=== PATIENT | female | born 1975 | race Two or more races ===

== ENCOUNTER 2017-05-22 00:18 | Emergency (ER) | payer MEDICAID ==
[~2017-05-22] VITALS: Ht 152.4 cm; Wt 78.0 kg
[~2017-05-22 00:18] MED LIST: METO25TA3
[2017-05-22 00:53] LABS: Basophils # (auto) 0 uL; Basophils % (auto) 0.5 % (0.0-2.0); Eosinophils # (auto) 0.1 uL; Eosinophils % (auto) 1.3 % (0.0-7.0); Hematocrit 39.4 % (36.0-46.0); Hemoglobin 13.5 g/dL (12.2-16.2); Lymphocytes # (auto) 3.6 uL; Lymphocytes % (auto) 38.1 % (10.0-50.0); Mean Corpuscular Hemoglobin 30.5 pg (28.0-32.0); Mean Corpuscular Hgb Conc. 34.4 g/dL (32.0-36.0); Mean Corpuscular Volume 88.6 fL (80.0-100.0); Monocytes # (auto) 0.8 uL; Neutrophils # (auto) 4.9 uL; Neutrophils % (auto) 52.1 % (37.0-80.0); Nucleated Red Blood Cells % 0.1 %; Platelet Count (auto) 192 10^3/uL (140-450); Red Blood Cells 4.44 10^6/uL (4.0-5.20); Red Cell Distribution Width 13.2 % (11.8-14.3); White Blood Cell 9.4 10^3/uL (4.4-10.8)
[2017-05-22 01:05] LABS: INR 0.94 (0.9-1.15); Partial Thromboplastin Time 26.7 sec (22.64-33.71); Prothrombin Time 10.2 sec (9.37-12.3)
[2017-05-22 01:14] LABS: Alanine Aminotransferase 39 U/L (13-56); Albumin 3.7 g/dL (3.4-5.0); Anion Gap 6 (5-15); Aspartate Aminotransferase 43 U/L (15-37); Blood Urea Nitrogen 13 mg/dL (7-18); Calcium 9.2 mg/dL (8.5-10.1); Carbon Dioxide 22 mmol/L (21-32); Chloride 107 mmol/L (98-107); GFR African American 144 mL/min; GFR Non-African American 119 mL/min; Glucose 228 mg/dL (74-106); Magnesium 1.9 mg/dL (1.6-2.6); Potassium 3.8 mmol/L (3.5-5.1); Sodium 135 mmol/L (136-145)
[2017-05-22 01:19] LABS: Alkaline Phosphatase 103 U/L (45-117); Bilirubin, Total 0.4 mg/dL (0.2-1.0); Total Protein 7.3 g/dL (6.4-8.2)
[2017-05-22 12:36] LABS: Urine Bacteria FEW /hpf (None Seen); Urine Blood TRACE /uL (Negative); Urine Mucus FEW (None Seen); Urine Specific Gravity 1.023 (1.001-1.035); Urine WBC 2 /hpf (0 - 5)
[2017-05-22] MEDS ORDERED: ACETAMINOPHEN 325 MG TAB PO ONE ×2 (14:55→15:00)
[2017-05-22 15:01] VITALS: BP 98/55
== END 2017-05-22 15:31 | disposition home or self-care (01) ==
LOC: EDBD 00:18 → ER 00:23
DX: K76.0 Fatty (change of) liver, not elsewhere classified (principal); E11.9 Type 2 diabetes mellitus without complications; G93.2 Benign intracranial hypertension; Z98.51 Tubal ligation status
CPT/HCPCS: 36415; 71045; 74176; 80053; 81001; 83036; 83605; 83735; 83880; 84484; 84702; 85025; 85610; 85730; 87040; 93005

== ENCOUNTER 2021-01-18 18:24 | Inpatient (IN) | payer MEDICAID ==
[~2021-01-18] VITALS: Ht 157.5 cm; Wt 72.0 kg
[~2021-01-18 18:24] MED LIST changes: -METO25TA3; +METO25TA36
[2021-01-18] MEDS ORDERED: DexAMETHasone SOD PHOS 10MG/1ML VIAL INJ IV ONE (19:15)
[2021-01-18] MEDS ORDERED: KETOROLAC TROMETH 30 MG/ML 1ML VIAL IV ONE (19:15)
[2021-01-18 21:08] LABS: Basophils # (auto) 0 10 ^3/uL (0-0.2); Basophils % (auto) 0.2 % (0.0-2.0); Eosinophils # (auto) 0 10 ^3/uL (0-0.8); Eosinophils % (auto) 0.1 % (0.0-7.0); Hematocrit 43.8 % (36.0-46.0); Hemoglobin 14.7 g/dL (12.2-16.2); Lymphocytes # (auto) 0.9 10 ^3/uL (0.4-5.4); Lymphocytes % (auto) 16.9 % (10.0-50.0); Mean Corpuscular Hemoglobin 29.8 pg (28.0-32.0); Mean Corpuscular Hgb Conc. 33.6 g/dL (32.0-36.0); Mean Corpuscular Volume 88.6 fL (80.0-100.0); Monocytes # (auto) 0.5 10 ^3/uL (0-1.3); Monocytes % (auto) 9.6 % (0.0-12.0); Neutrophils % (auto) 73.2 % (37.0-80.0); Nucleated Red Blood Cells % 0.3 %; Red Blood Cells 4.94 10^6/uL (4.0-5.20); Red Cell Distribution Width 12.8 % (11.8-14.3); White Blood Cell 5.4 10^3/uL (4.4-10.8)
[2021-01-18 21:13] LABS: INR 1.03 (0.9-1.15); Partial Thromboplastin Time 27.2 sec (23.6-33.0)
[2021-01-18 21:28] LABS: Beta HCG, Quantitative < 1 mlU/mL (1-3); Lactate Dehydrogenase 604 U/L (84-246)
[2021-01-18] MEDS ORDERED: ONDANSETRON HCL 4 MG/2 ML VIAL IV ONE (21:30)
[2021-01-18] MEDS ORDERED: IOHEXOL 350 MG/ML 100ML IJ ONE ×2 (21:46→21:58)
[2021-01-18 22:54] LABS: Albumin 2.6 g/dL (3.4-5.0); Calcium 8.2 mg/dL (8.5-10.1); Potassium 3.7 mmol/L (3.5-5.1)
[2021-01-18] MEDS ORDERED: ACETAMINOPHEN 325 MG TAB PO PRN (23:00)
[2021-01-18] MEDS ORDERED: hydrALAZINE HCL 10 MG TAB PO PRN (23:00)
[2021-01-18 23:08] LABS: BUN/Creatinine Ratio 12.8; Total Protein 7.3 g/dL (6.4-8.2)
[2021-01-19] VITALS (7 sets, daily range): BP systolic 102–122; BP diastolic 47–71
[2021-01-19] MEDS ORDERED: ALBUTEROL SULF 2.5 MG/0.5ML(0.5%) NEB SOLN NEB SCH
[2021-01-19] MEDS ORDERED: METF-370 PO (01:06)
[2021-01-19] MEDS ORDERED: INFLUENZA QUAD 2021-2022 0.5 ML SYRG IM ONE (01:15)
[2021-01-19] MEDS ORDERED: PNEUMOCOCCAL VACC POLYS 25 MCG/0.5 ML VIAL IM ONE (01:15)
[2021-01-19] MEDS ORDERED: DEXTROSE (50%) 50ML SYRG IV PRN (06:45)
[2021-01-19] MEDS: ACCU-CHEK COMFORT CURVE STRIP VI SCH ×4 (07:04→21:34)
[2021-01-19] MEDS: InsuLIN REG 1unit/0.01ml Soln (100units/ml) SC SCH ×4 (07:05→21:51)
[2021-01-19] MEDS: DOXYCYCLINE 100MG/250ML 250 ML IV SCH ×2 (09:50→21:33)
[2021-01-19] MEDS: DexAMETHasone SOD PHOS 10MG/1ML VIAL INJ IV SCH (09:50)
[2021-01-19] MEDS: ASCORBIC ACID 500 MG TAB PO SCH ×2 (09:51→21:33)
[2021-01-19] MEDS: FAMOTIDINE 20 MG TAB PO SCH ×2 (09:51→21:33)
[2021-01-19] MEDS: ZINC SULFATE 220mg CAP or TAB PO SCH (09:51)
[2021-01-19] MEDS: ONDANSETRON HCL 4 MG/2 ML VIAL IV PRN (12:09)
[2021-01-19] MEDS ORDERED: REMDESIVIR PER PHARMACY 0 ML IV SCH (15:00)
[2021-01-19] MEDS ORDERED: REMDESIVIR 200 MG in NS 210ml LOADING DOSE ADULT IV ONE (15:00)
[2021-01-19 20:50] LABS: Urine Bacteria NONE SEEN /hpf (None Seen); Urine Blood Negative /uL (Negative); Urine Specific Gravity 1.045 (1.001-1.035); Urine WBC 1 /hpf (0 - 5)
[2021-01-19] MEDS: ACETAMINOPHEN 325 MG TAB PO PRN (23:18)
[2021-01-20] MEDS: ALBUTEROL SULF HFA 90MCG INH 200DOSE IN PRN ×3 (00:47→20:52)
[2021-01-20 05:00] VITALS: BP 117/76
[2021-01-20] MEDS: ACCU-CHEK COMFORT CURVE STRIP VI SCH ×4 (06:15→21:31)
[2021-01-20] MEDS: InsuLIN REG 1unit/0.01ml Soln (100units/ml) SC SCH ×4 (06:17→21:48)
[2021-01-20] MEDS: ONDANSETRON HCL 4 MG/2 ML VIAL IV PRN (06:22)
[2021-01-20 09:00] VITALS: BP 106/64
[2021-01-20 09:30] LABS: Potassium 3.4 mmol/L (3.5-5.1)
[2021-01-20 09:39] LABS: Albumin 2.5 g/dL (3.4-5.0); BUN/Creatinine Ratio 32.4; Bilirubin, Total 0.6 mg/dL (0.2-1.0); Calcium 8.2 mg/dL (8.5-10.1); Total Protein 6.3 g/dL (6.4-8.2)
[2021-01-20] MEDS: ASCORBIC ACID 500 MG TAB PO SCH ×2 (10:00→21:30)
[2021-01-20] MEDS: DOXYCYCLINE 100MG/250ML 250 ML IV SCH ×2 (10:55→21:30)
[2021-01-20] MEDS: DexAMETHasone SOD PHOS 10MG/1ML VIAL INJ IV SCH (10:55)
[2021-01-20] MEDS: ZINC SULFATE 220mg CAP or TAB PO SCH (10:55)
[2021-01-20] MEDS: FAMOTIDINE 20 MG TAB PO SCH ×2 (10:55→21:30)
[2021-01-20] MEDS: guaiFENesin-DM 100/10mg/5ml SYR PO PRN ×2 (12:08→18:05)
[2021-01-20 13:00] VITALS: BP 107/68
[2021-01-20] MEDS: REMDESIVIR 100mg 100 MG in SODIUM CHL 0.9% 230 ML IV SCH (15:55)
[2021-01-20 17:00] VITALS: BP 108/66
[2021-01-20 22:27] VITALS: BP 120/81
[2021-01-21] MEDS: guaiFENesin-DM 100/10mg/5ml SYR PO PRN ×2 (00:02→08:22)
[2021-01-21] MEDS: ONDANSETRON HCL 4 MG/2 ML VIAL IV PRN ×2 (03:59→11:30)
[2021-01-21 05:59] VITALS: BP 98/56
[2021-01-21] MEDS: InsuLIN REG 1unit/0.01ml Soln (100units/ml) SC SCH ×4 (06:41→21:58)
[2021-01-21] MEDS: ACCU-CHEK COMFORT CURVE STRIP VI SCH ×4 (06:42→21:43)
[2021-01-21 07:20] LABS: Potassium 3.3 mmol/L (3.5-5.1)
[2021-01-21 07:28] LABS: Albumin 2.4 g/dL (3.4-5.0); BUN/Creatinine Ratio 29.3; Bilirubin, Total 0.4 mg/dL (0.2-1.0); Total Protein 5.8 g/dL (6.4-8.2)
[2021-01-21] MEDS: ALBUTEROL SULF HFA 90MCG INH 200DOSE IN PRN ×2 (08:09→19:30)
[2021-01-21 09:00] VITALS: BP 113/76
[2021-01-21] MEDS: DexAMETHasone SOD PHOS 10MG/1ML VIAL INJ IV SCH (11:10)
[2021-01-21] MEDS: DOXYCYCLINE 100MG/250ML 250 ML IV SCH ×2 (11:11→21:42)
[2021-01-21] MEDS: ZINC SULFATE 220mg CAP or TAB PO SCH (11:11)
[2021-01-21] MEDS: FAMOTIDINE 20 MG TAB PO SCH ×2 (11:11→21:42)
[2021-01-21] MEDS: ASCORBIC ACID 500 MG TAB PO SCH ×2 (11:11→21:43)
[2021-01-21 12:50] VITALS: BP 119/72
[2021-01-21] MEDS: REMDESIVIR 100mg 100 MG in SODIUM CHL 0.9% 230 ML IV SCH (15:00)
[2021-01-21 17:00] VITALS: BP 124/78
[2021-01-21 22:00] VITALS: BP 111/78
[2021-01-22] MEDS: guaiFENesin-DM 100/10mg/5ml SYR PO PRN ×2 (01:38→06:17)
[2021-01-22 06:12] VITALS: BP 98/62
[2021-01-22] MEDS: ACCU-CHEK COMFORT CURVE STRIP VI SCH ×4 (06:34→20:40)
[2021-01-22] MEDS: InsuLIN REG 1unit/0.01ml Soln (100units/ml) SC SCH ×4 (06:37→20:38)
[2021-01-22 07:51] LABS: Albumin 2.5 g/dL (3.4-5.0); Calcium 8.2 mg/dL (8.5-10.1); Potassium 3.4 mmol/L (3.5-5.1)
[2021-01-22 07:55] LABS: BUN/Creatinine Ratio 23.3; Bilirubin, Total 0.7 mg/dL (0.2-1.0); Total Protein 6.1 g/dL (6.4-8.2)
[2021-01-22 09:00] VITALS: BP 100/64
[2021-01-22] MEDS: DOXYCYCLINE 100MG/250ML 250 ML IV SCH ×2 (10:43→20:41)
[2021-01-22] MEDS: ZINC SULFATE 220mg CAP or TAB PO SCH (10:43)
[2021-01-22] MEDS: DexAMETHasone SOD PHOS 10MG/1ML VIAL INJ IV SCH (10:43)
[2021-01-22] MEDS: FAMOTIDINE 20 MG TAB PO SCH ×2 (10:44→20:41)
[2021-01-22] MEDS: ASCORBIC ACID 500 MG TAB PO SCH ×2 (10:44→20:41)
[2021-01-22] MEDS: ONDANSETRON HCL 4 MG/2 ML VIAL IV PRN (10:45)
[2021-01-22 12:50] VITALS: BP 101/57
[2021-01-22] MEDS: REMDESIVIR 100mg 100 MG in SODIUM CHL 0.9% 230 ML IV SCH (15:00)
[2021-01-22] MEDS: ALBUTEROL SULF HFA 90MCG INH 200DOSE IN PRN ×2 (16:54→23:46)
[2021-01-22 17:00] VITALS: BP 100/62
[2021-01-22 22:00] VITALS: BP 112/66
[2021-01-23] MEDS: ONDANSETRON HCL 4 MG/2 ML VIAL IV PRN (04:08)
[2021-01-23 05:00] VITALS: BP 114/63
[2021-01-23] MEDS: ACCU-CHEK COMFORT CURVE STRIP VI SCH ×4 (05:10→20:39)
[2021-01-23] MEDS: InsuLIN REG 1unit/0.01ml Soln (100units/ml) SC SCH ×4 (05:13→20:44)
[2021-01-23 09:00] VITALS: BP 111/68
[2021-01-23 09:23] LABS: Albumin 2.5 g/dL (3.4-5.0); BUN/Creatinine Ratio 27.5; Bilirubin, Total 0.7 mg/dL (0.2-1.0); Calcium 8.2 mg/dL (8.5-10.1); Potassium 3.4 mmol/L (3.5-5.1); Total Protein 6.1 g/dL (6.4-8.2)
[2021-01-23] MEDS: ALBUTEROL SULF HFA 90MCG INH 200DOSE IN PRN (09:25)
[2021-01-23] MEDS: FAMOTIDINE 20 MG TAB PO SCH ×2 (10:49→20:44)
[2021-01-23] MEDS: ZINC SULFATE 220mg CAP or TAB PO SCH (10:49)
[2021-01-23] MEDS: DexAMETHasone SOD PHOS 10MG/1ML VIAL INJ IV SCH (10:49)
[2021-01-23] MEDS: DOXYCYCLINE 100MG/250ML 250 ML IV SCH ×2 (10:49→20:44)
[2021-01-23] MEDS: ASCORBIC ACID 500 MG TAB PO SCH ×2 (10:50→20:44)
[2021-01-23 12:30] VITALS: BP 103/66
[2021-01-23] MEDS ORDERED: HYDROCORTISONE 2.5% TOPICAL CREAM 30GM TUBE PR PRN (13:00)
[2021-01-23] MEDS: REMDESIVIR 100mg 100 MG in SODIUM CHL 0.9% 230 ML IV SCH (15:56)
[2021-01-23 16:27] VITALS: BP 103/66
[2021-01-23 17:00] VITALS: BP 100/65
[2021-01-23 22:00] VITALS: BP 108/66
[2021-01-24 05:00] VITALS: BP 97/59
[2021-01-24] MEDS: ACCU-CHEK COMFORT CURVE STRIP VI SCH ×4 (05:52→22:01)
[2021-01-24] MEDS: InsuLIN REG 1unit/0.01ml Soln (100units/ml) SC SCH ×4 (05:54→22:03)
[2021-01-24] MEDS: ALBUTEROL SULF HFA 90MCG INH 200DOSE IN PRN (05:56)
[2021-01-24] MEDS: ONDANSETRON HCL 4 MG/2 ML VIAL IV PRN (05:57)
[2021-01-24 08:00] VITALS: BP 97/58
[2021-01-24] MEDS: ASCORBIC ACID 500 MG TAB PO SCH ×2 (09:24→22:04)
[2021-01-24] MEDS: FAMOTIDINE 20 MG TAB PO SCH ×2 (09:24→22:04)
[2021-01-24] MEDS: DexAMETHasone SOD PHOS 10MG/1ML VIAL INJ IV SCH (09:24)
[2021-01-24] MEDS: DOXYCYCLINE 100MG/250ML 250 ML IV SCH (09:24)
[2021-01-24] MEDS: ZINC SULFATE 220mg CAP or TAB PO SCH (09:25)
[2021-01-24 12:00] VITALS: BP 114/67
[2021-01-24 16:00] VITALS: BP 98/52
[2021-01-24 22:00] VITALS: BP 102/58
[2021-01-24] MEDS: guaiFENesin-DM 100/10mg/5ml SYR PO PRN (23:22)
[2021-01-25] MEDS: ONDANSETRON HCL 4 MG/2 ML VIAL IV PRN (03:29)
[2021-01-25 05:00] VITALS: BP 119/66
[2021-01-25] MEDS: MORPHINE SULFATE INJECTION 2 MG/ML SYRG IV PRN (06:00)
[2021-01-25] MEDS: ACCU-CHEK COMFORT CURVE STRIP VI SCH ×4 (06:11→21:42)
[2021-01-25] MEDS: InsuLIN REG 1unit/0.01ml Soln (100units/ml) SC SCH ×4 (06:19→21:32)
[2021-01-25 08:00] VITALS: BP 108/71
[2021-01-25] MEDS: ALBUTEROL SULF HFA 90MCG INH 200DOSE IN PRN (08:16)
[2021-01-25] MEDS: ZINC SULFATE 220mg CAP or TAB PO SCH (09:39)
[2021-01-25] MEDS: FAMOTIDINE 20 MG TAB PO SCH ×2 (09:39→21:41)
[2021-01-25] MEDS: DexAMETHasone SOD PHOS 10MG/1ML VIAL INJ IV SCH (09:39)
[2021-01-25] MEDS: ASCORBIC ACID 500 MG TAB PO SCH ×2 (09:39→21:42)
[2021-01-25] MEDS: ENOXAPARIN SOD 40 MG/0.4 ML SYRINGE SC SCH (11:46)
[2021-01-25 12:00] VITALS: BP 110/65
[2021-01-25] MEDS: INSULIN LANTUS (GLARGINE) 1 /0.01ml (100units/ml) SC SCH (21:33)
[2021-01-26] MEDS: ALBUTEROL SULF HFA 90MCG INH 200DOSE IN PRN (01:34)
[2021-01-26] MEDS: ACETAMINOPHEN 325 MG TAB PO PRN (02:26)
[2021-01-26] MEDS: MORPHINE SULFATE INJECTION 2 MG/ML SYRG IV PRN (04:13)
[2021-01-26 05:00] VITALS: BP 100/73
[2021-01-26] MEDS: InsuLIN REG 1unit/0.01ml Soln (100units/ml) SC SCH ×3 (06:15→22:19)
[2021-01-26] MEDS: ACCU-CHEK COMFORT CURVE STRIP VI SCH ×4 (06:27→22:05)
[2021-01-26 07:37] LABS: Basophils # (auto) 0.1 10 ^3/uL (0-0.2); Eosinophils # (auto) 0 10 ^3/uL (0-0.8); Hematocrit 41.1 % (36.0-46.0); Hemoglobin 14.3 g/dL (12.2-16.2); Lymphocytes # (auto) 1.5 10 ^3/uL (0.4-5.4); Lymphocytes % (auto) 13.3 % (10.0-50.0); Mean Corpuscular Hemoglobin 30.5 pg (28.0-32.0); Mean Corpuscular Hgb Conc. 34.8 g/dL (32.0-36.0); Mean Corpuscular Volume 87.4 fL (80.0-100.0); Monocytes # (auto) 0.9 10 ^3/uL (0-1.3); Monocytes % (auto) 7.5 % (0.0-12.0); Neutrophils % (auto) 78.2 % (37.0-80.0); Red Cell Distribution Width 12.6 % (11.8-14.3); White Blood Cell 11.5 10^3/uL (4.4-10.8)
[2021-01-26 07:54] LABS: Potassium 4.5 mmol/L (3.5-5.1)
[2021-01-26 08:04] LABS: Albumin 3.1 g/dL (3.4-5.0); BUN/Creatinine Ratio 33.3; Bilirubin, Total 0.9 mg/dL (0.2-1.0); Calcium 9.2 mg/dL (8.5-10.1)
[2021-01-26 09:00] VITALS: BP 95/62
[2021-01-26] MEDS: ASCORBIC ACID 500 MG TAB PO SCH ×2 (10:03→22:04)
[2021-01-26] MEDS: DexAMETHasone SOD PHOS 10MG/1ML VIAL INJ IV SCH (10:03)
[2021-01-26] MEDS: FAMOTIDINE 20 MG TAB PO SCH ×2 (10:03→22:04)
[2021-01-26] MEDS: ENOXAPARIN SOD 40 MG/0.4 ML SYRINGE SC SCH (10:03)
[2021-01-26] MEDS: ZINC SULFATE 220mg CAP or TAB PO SCH (10:03)
[2021-01-26] MEDS: HYDROcodone-ACET 5/325MG TAB PO PRN (10:04)
[2021-01-26 13:00] VITALS: BP 94/62
[2021-01-26 13:20] VITALS: BP 95/62
[2021-01-26] MEDS ORDERED: DOCUSATE SOD 100 MG CAP PO ONE (15:30)
[2021-01-26 17:00] VITALS: BP 109/68
[2021-01-26] MEDS ORDERED: InsuLIN REG 1unit/0.01ml Soln (100units/ml) SC SCH (18:00)
[2021-01-26] MEDS: DOCUSATE SOD 100 MG CAP PO SCH (22:03)
[2021-01-26] MEDS: SENNA 8.6 MG TAB PO SCH (22:04)
[2021-01-26] MEDS: INSULIN LANTUS (GLARGINE) 1 /0.01ml (100units/ml) SC SCH (22:15)
[2021-01-26 22:25] VITALS: BP 107/73
[2021-01-27] MEDS: ALBUTEROL SULF HFA 90MCG INH 200DOSE IN PRN ×2 (00:50→06:07)
[2021-01-27] MEDS: MORPHINE SULFATE INJECTION 2 MG/ML SYRG IV PRN (02:40)
[2021-01-27] MEDS: ONDANSETRON HCL 4 MG/2 ML VIAL IV PRN (02:41)
[2021-01-27 05:00] VITALS: BP 104/67
[2021-01-27] MEDS: InsuLIN REG 1unit/0.01ml Soln (100units/ml) SC SCH ×4 (06:33→21:17)
[2021-01-27] MEDS: ACCU-CHEK COMFORT CURVE STRIP VI SCH ×4 (06:34→21:18)
[2021-01-27 07:59] LABS: Basophils # (auto) 0 10 ^3/uL (0-0.2); Basophils % (auto) 0.2 % (0.0-2.0); Eosinophils # (auto) 0 10 ^3/uL (0-0.8); Hematocrit 40.6 % (36.0-46.0); Hemoglobin 14.1 g/dL (12.2-16.2); Lymphocytes # (auto) 1.7 10 ^3/uL (0.4-5.4); Lymphocytes % (auto) 14.5 % (10.0-50.0); Mean Corpuscular Hemoglobin 30.2 pg (28.0-32.0); Mean Corpuscular Hgb Conc. 34.6 g/dL (32.0-36.0); Mean Corpuscular Volume 87.4 fL (80.0-100.0); Monocytes % (auto) 8.4 % (0.0-12.0); Neutrophils # (auto) 8.8 10 ^3/uL (1.6-8.6); Neutrophils % (auto) 76.9 % (37.0-80.0); Nucleated Red Blood Cells % 0.1 %; Red Blood Cells 4.65 10^6/uL (4.0-5.20); Red Cell Distribution Width 12.8 % (11.8-14.3); White Blood Cell 11.4 10^3/uL (4.4-10.8)
[2021-01-27 08:11] LABS: Potassium 4.5 mmol/L (3.5-5.1)
[2021-01-27 08:24] LABS: Bilirubin, Total 0.9 mg/dL (0.2-1.0); Calcium 8.9 mg/dL (8.5-10.1); Total Protein 6.8 g/dL (6.4-8.2)
[2021-01-27 09:00] VITALS: BP 103/66
[2021-01-27] MEDS: DexAMETHasone SOD PHOS 10MG/1ML VIAL INJ IV SCH (10:06)
[2021-01-27] MEDS: FAMOTIDINE 20 MG TAB PO SCH ×2 (10:07→21:19)
[2021-01-27] MEDS: DOCUSATE SOD 100 MG CAP PO SCH ×2 (10:07→21:16)
[2021-01-27] MEDS: ZINC SULFATE 220mg CAP or TAB PO SCH (10:07)
[2021-01-27] MEDS: ASCORBIC ACID 500 MG TAB PO SCH ×2 (10:07→21:18)
[2021-01-27] MEDS: ENOXAPARIN SOD 40 MG/0.4 ML SYRINGE SC SCH (10:07)
[2021-01-27] MEDS: POLYETHYLENE GLYCOL 17 GM PWDR PO SCH (10:08)
[2021-01-27] MEDS ORDERED: MECLIZINE HCL 25 MG TAB PO PRN (11:15)
[2021-01-27 13:00] VITALS: BP 97/50
[2021-01-27 16:58] VITALS: BP 106/66
[2021-01-27] MEDS: INSULIN LANTUS (GLARGINE) 1 /0.01ml (100units/ml) SC SCH (21:18)
[2021-01-27] MEDS: SENNA 8.6 MG TAB PO SCH (21:19)
[2021-01-27 22:00] VITALS: BP 97/58
[2021-01-28 05:00] VITALS: BP 108/79
[2021-01-28] MEDS: MORPHINE SULFATE INJECTION 2 MG/ML SYRG IV PRN (05:25)
[2021-01-28] MEDS: glipiZIDE 5 MG TAB PO SCH (06:15)
[2021-01-28] MEDS: ACCU-CHEK COMFORT CURVE STRIP VI SCH ×4 (06:15→21:30)
[2021-01-28] MEDS: InsuLIN REG 1unit/0.01ml Soln (100units/ml) SC SCH ×4 (06:16→21:29)
[2021-01-28] MEDS: ALBUTEROL SULF HFA 90MCG INH 200DOSE IN PRN ×2 (06:23→21:30)
[2021-01-28 09:00] VITALS: BP 108/58
[2021-01-28] MEDS: DOCUSATE SOD 100 MG CAP PO SCH ×2 (10:18→21:29)
[2021-01-28] MEDS: DexAMETHasone SOD PHOS 10MG/1ML VIAL INJ IV SCH (10:18)
[2021-01-28] MEDS: FAMOTIDINE 20 MG TAB PO SCH ×2 (10:18→21:29)
[2021-01-28] MEDS: POLYETHYLENE GLYCOL 17 GM PWDR PO SCH (10:18)
[2021-01-28] MEDS: ASCORBIC ACID 500 MG TAB PO SCH ×2 (10:18→21:29)
[2021-01-28] MEDS: ZINC SULFATE 220mg CAP or TAB PO SCH (10:18)
[2021-01-28] MEDS: ENOXAPARIN SOD 40 MG/0.4 ML SYRINGE SC SCH (10:19)
[2021-01-28 12:38] VITALS: BP 118/71
[2021-01-28 16:39] VITALS: BP 115/76
[2021-01-28] MEDS: SENNA 8.6 MG TAB PO SCH (21:29)
[2021-01-28] MEDS: INSULIN LANTUS (GLARGINE) 1 /0.01ml (100units/ml) SC SCH (21:30)
[2021-01-28 22:00] VITALS: BP 102/60
[2021-01-29 05:00] VITALS: BP 108/69
[2021-01-29] MEDS: HYDROcodone-ACET 5/325MG TAB PO PRN (05:51)
[2021-01-29] MEDS: ALBUTEROL SULF HFA 90MCG INH 200DOSE IN PRN (06:12)
[2021-01-29] MEDS: glipiZIDE 5 MG TAB PO SCH (06:13)
[2021-01-29] MEDS: ACCU-CHEK COMFORT CURVE STRIP VI SCH ×4 (06:13→21:14)
[2021-01-29] MEDS: InsuLIN REG 1unit/0.01ml Soln (100units/ml) SC SCH ×4 (06:13→21:07)
[2021-01-29 09:00] VITALS: BP 99/61
[2021-01-29] MEDS: ZINC SULFATE 220mg CAP or TAB PO SCH (09:50)
[2021-01-29] MEDS: DexAMETHasone SOD PHOS 10MG/1ML VIAL INJ IV SCH (09:50)
[2021-01-29] MEDS: FAMOTIDINE 20 MG TAB PO SCH ×2 (09:58→21:14)
[2021-01-29] MEDS: ENOXAPARIN SOD 40 MG/0.4 ML SYRINGE SC SCH (09:58)
[2021-01-29] MEDS: DOCUSATE SOD 100 MG CAP PO SCH ×2 (09:58→21:14)
[2021-01-29] MEDS: POLYETHYLENE GLYCOL 17 GM PWDR PO SCH (09:58)
[2021-01-29] MEDS: ASCORBIC ACID 500 MG TAB PO SCH ×2 (09:58→21:14)
[2021-01-29] MEDS: ONDANSETRON HCL 4 MG/2 ML VIAL IV PRN (10:13)
[2021-01-29 11:30] VITALS: BP 99/61
[2021-01-29 13:00] VITALS: BP 104/72
[2021-01-29 17:00] VITALS: BP 111/61
[2021-01-29] MEDS: INSULIN LANTUS (GLARGINE) 1 /0.01ml (100units/ml) SC SCH (21:13)
[2021-01-29] MEDS: SENNA 8.6 MG TAB PO SCH (21:14)
[2021-01-29 22:00] VITALS: BP 100/67
[2021-01-30] MEDS: guaiFENesin-DM 100/10mg/5ml SYR PO PRN ×2 (03:17→08:35)
[2021-01-30 05:00] VITALS: BP 102/64
[2021-01-30] MEDS: ALBUTEROL SULF HFA 90MCG INH 200DOSE IN PRN (05:53)
[2021-01-30] MEDS: InsuLIN REG 1unit/0.01ml Soln (100units/ml) SC SCH ×4 (06:27→22:00)
[2021-01-30] MEDS: ACCU-CHEK COMFORT CURVE STRIP VI SCH ×4 (06:30→22:56)
[2021-01-30] MEDS: glipiZIDE 5 MG TAB PO SCH (06:30)
[2021-01-30] MEDS: ONDANSETRON HCL 4 MG/2 ML VIAL IV PRN ×3 (06:34→20:07)
[2021-01-30 07:25] LABS: Basophils # (auto) 0 10 ^3/uL (0-0.2); Basophils % (auto) 0.6 % (0.0-2.0); Eosinophils # (auto) 0.1 10 ^3/uL (0-0.8); Eosinophils % (auto) 0.8 % (0.0-7.0); Hematocrit 37.5 % (36.0-46.0); Hemoglobin 13.2 g/dL (12.2-16.2); Lymphocytes # (auto) 2.5 10 ^3/uL (0.4-5.4); Lymphocytes % (auto) 29.6 % (10.0-50.0); Mean Corpuscular Hemoglobin 31.1 pg (28.0-32.0); Mean Corpuscular Hgb Conc. 35.2 g/dL (32.0-36.0); Mean Corpuscular Volume 88.2 fL (80.0-100.0); Monocytes # (auto) 0.6 10 ^3/uL (0-1.3); Monocytes % (auto) 7.2 % (0.0-12.0); Neutrophils # (auto) 5.3 10 ^3/uL (1.6-8.6); Neutrophils % (auto) 61.8 % (37.0-80.0); Nucleated Red Blood Cells % 0.9 %; Red Blood Cells 4.24 10^6/uL (4.0-5.20); Red Cell Distribution Width 12.7 % (11.8-14.3); White Blood Cell 8.6 10^3/uL (4.4-10.8)
[2021-01-30 07:36] LABS: BUN/Creatinine Ratio 26.5; Calcium 8.4 mg/dL (8.5-10.1); Potassium 4.2 mmol/L (3.5-5.1)
[2021-01-30 09:00] VITALS: BP 102/58
[2021-01-30] MEDS: DexAMETHasone SOD PHOS 10MG/1ML VIAL INJ IV SCH (10:13)
[2021-01-30] MEDS: ZINC SULFATE 220mg CAP or TAB PO SCH (10:14)
[2021-01-30] MEDS: FAMOTIDINE 20 MG TAB PO SCH ×2 (10:14→22:56)
[2021-01-30] MEDS: DOCUSATE SOD 100 MG CAP PO SCH ×2 (10:14→22:55)
[2021-01-30] MEDS: POLYETHYLENE GLYCOL 17 GM PWDR PO SCH (10:14)
[2021-01-30] MEDS: ASCORBIC ACID 500 MG TAB PO SCH ×2 (10:15→22:56)
[2021-01-30] MEDS: ENOXAPARIN SOD 40 MG/0.4 ML SYRINGE SC SCH (10:15)
[2021-01-30 12:39] VITALS: BP 113/69
[2021-01-30 16:36] VITALS: BP 108/63
[2021-01-30] MEDS: ACETAMINOPHEN 325 MG TAB PO PRN (20:07)
[2021-01-30 22:00] VITALS: BP 115/56
[2021-01-30] MEDS: INSULIN LANTUS (GLARGINE) 1 /0.01ml (100units/ml) SC SCH (22:00)
[2021-01-30] MEDS: SENNA 8.6 MG TAB PO SCH (22:56)
[2021-01-31] MEDS: ACETAMINOPHEN 325 MG TAB PO PRN (00:54)
[2021-01-31 05:00] VITALS: BP 99/61
[2021-01-31] MEDS: guaiFENesin-DM 100/10mg/5ml SYR PO PRN ×2 (05:50→10:55)
[2021-01-31] MEDS: ACCU-CHEK COMFORT CURVE STRIP VI SCH ×2 (06:10→13:25)
[2021-01-31] MEDS: InsuLIN REG 1unit/0.01ml Soln (100units/ml) SC SCH ×2 (06:10→11:30)
[2021-01-31] MEDS ORDERED: glipiZIDE 5 MG TAB PO SCH (07:00)
[2021-01-31 08:51] VITALS: BP 104/65
[2021-01-31] MEDS: ALBUTEROL SULF HFA 90MCG INH 200DOSE IN PRN (09:01)
[2021-01-31] MEDS: POLYETHYLENE GLYCOL 17 GM PWDR PO SCH (09:17)
[2021-01-31] MEDS: ZINC SULFATE 220mg CAP or TAB PO SCH (09:17)
[2021-01-31] MEDS: DOCUSATE SOD 100 MG CAP PO SCH (09:17)
[2021-01-31] MEDS: ENOXAPARIN SOD 40 MG/0.4 ML SYRINGE SC SCH (09:18)
[2021-01-31] MEDS: ASCORBIC ACID 500 MG TAB PO SCH (09:18)
[2021-01-31] MEDS: ONDANSETRON HCL 4 MG/2 ML VIAL IV PRN (09:18)
[2021-01-31] MEDS: FAMOTIDINE 20 MG TAB PO SCH (09:18)
[2021-01-31 12:43] VITALS: BP 117/76
[2021-01-31 17:06] VITALS: BP 103/65
== END 2021-01-31 18:00 | disposition home or self-care (01) | DRG 137 ==
LOC: EDBD 18:24 → ER 18:25 → TELE 22:48 → TELE-EAST 23:28
PROVIDERS: ADMIT Nurse Practitioner Family; ATTEND Nurse Practitioner Family
PROC: XW033E5 Introduction of Remdesivir Anti-infective into Peripheral Vein, Percutaneous Approach, New Technology Group 5 (ICD-10-PCS; principal; 2021-01-19)
PROC: 05HC33Z Insertion of Infusion Device into Left Basilic Vein, Percutaneous Approach (ICD-10-PCS; 2021-01-25)
PROC: B54NZZA Ultrasonography of Left Upper Extremity Veins, Guidance (ICD-10-PCS; 2021-01-25)
DX: U07.1 COVID-19 (principal); J96.01 Acute respiratory failure with hypoxia; J12.82 Pneumonia due to coronavirus disease 2019; E66.9 Obesity, unspecified; Z68.30 Body mass index [BMI] 30.0-30.9, adult; E88.09 Other disorders of plasma-protein metabolism, not elsewhere classified; H81.10 Benign paroxysmal vertigo, unspecified ear; K59.00 Constipation, unspecified; E11.65 Type 2 diabetes mellitus with hyperglycemia; Z78.9 Other specified health status; Z79.899 Other long term (current) drug therapy; Z83.3 Family history of diabetes mellitus; R00.1 Bradycardia, unspecified; R74.01 Elevation of levels of liver transaminase levels
CPT/HCPCS: 36415; 36600; 70450; 71045; 71275; 80048; 80053; 81001; 82728; 82805; 82962; 83036; 83605; 83615; 83735; 84484; 84702; 85025; 85379; 85610; 85730; 87426; 93970; 94640; 96374; 96375; G0378; J1100; J1815; J1885; J2405; J3490

== ENCOUNTER 2022-01-07 12:06 | Inpatient (IN) | payer MEDICAID ==
[~2022-01-07] VITALS: Ht 157.5 cm; Wt 73.7 kg
[2022-01-07] VITALS (22 sets, daily range): BP systolic 83–141; BP diastolic 43–64
[~2022-01-07 12:06] MED LIST changes: +METF-370 PO; -METO25TA36
[2022-01-07] MEDS ORDERED: DexAMETHasone SOD PHOS 10MG/1ML VIAL INJ IV ONE (14:00)
[2022-01-07] MEDS ORDERED: diphenhdrAMINE HCL 50 MG/1 ML VL IV ONE (14:00)
[2022-01-07 14:27] LABS: Basophils # (auto) 0 10 ^3/uL (0-0.2); Basophils % (auto) 0.5 % (0.0-2.0); Eosinophils # (auto) 0 10 ^3/uL (0-0.8); Eosinophils % (auto) 0.1 % (0.0-7.0); Hematocrit 39.9 % (36.0-46.0); Hemoglobin 13.5 g/dL (12.2-16.2); Lymphocytes % (auto) 13.9 % (10.0-50.0); Mean Corpuscular Hemoglobin 29.5 pg (28.0-32.0); Mean Corpuscular Hgb Conc. 33.7 g/dL (32.0-36.0); Mean Corpuscular Volume 87.5 fL (80.0-100.0); Monocytes # (auto) 0.8 10 ^3/uL (0-1.3); Monocytes % (auto) 10.6 % (0.0-12.0); Neutrophils # (auto) 5.5 10 ^3/uL (1.6-8.6); Neutrophils % (auto) 74.9 % (37.0-80.0); Nucleated Red Blood Cells % 0.1 %; Red Blood Cells 4.56 10^6/uL (4.0-5.20); Red Cell Distribution Width 13.4 % (11.8-14.3); White Blood Cell 7.3 10^3/uL (4.4-10.8)
[2022-01-07 15:00] LABS: Albumin 4.3 g/dL (3.4-5.0); Calcium 9.1 mg/dL (8.5-10.1); Potassium 3.8 mmol/L (3.5-5.1)
[2022-01-07 15:03] LABS: BUN/Creatinine Ratio 11.8; Bilirubin, Total 0.6 mg/dL (0.2-1.0); Total Protein 7.9 g/dL (6.4-8.2)
[2022-01-07] MEDS ORDERED: cefTRIAXone 1GM/50ML D5W 50 ML IV ONE (15:15)
[2022-01-07] MEDS ORDERED: AZITHROMYCIN 500MG/ 250ML 250 ML IV ONE (15:15)
[2022-01-07] MEDS ORDERED: EPINEPHrine HCL 0.5 ML NEB NEB ONE ×2 (16:00→22:45)
[2022-01-07] MEDS ORDERED: VANCOMYCIN 1GM/250ML 250 ML IV ONE (16:00)
[2022-01-07] MEDS ORDERED: fentaNYL CITRATE 100 MCG/2 ML VL ONE ×2 (17:08→17:34)
[2022-01-07] MEDS ORDERED: MIDAZOLAM HCL 2MG/2ML 2ml VIAL (1mg/ml) ONE ×2 (17:09→17:29)
[2022-01-07] MEDS ORDERED: DexAMETHasone SOD PHOS 10MG/1ML VIAL INJ ONE (17:28)
[2022-01-07] MEDS ORDERED: PROPOFOL 10 MG/ML 20 ML IV ONE (17:29)
[2022-01-07] MEDS ORDERED: HYDROmorphone HCL 2 MG/ML VL/or syr ONE (17:29)
[2022-01-07] MEDS: DexAMETHasone SOD PHOS 4 MG/1ML SDV INJ IV SCH (18:00)
[2022-01-07] MEDS ORDERED: MORPHINE SULFATE INJ 2 MG/ml SYRG IV PRN (18:15)
[2022-01-07] MEDS ORDERED: NITROGLYCERIN 0.4 MG SL TAB SL PRN (18:15)
[2022-01-07] MEDS ORDERED: ALBUTEROL SULF HFA 90MCG INH 200DOSE IN PRN (18:30)
[2022-01-07] MEDS ORDERED: LABETALOL HCL 5 MG/ML 4ML SYRINGE IV PRN (18:30)
[2022-01-07] MEDS ORDERED: ePHEDrine SULFATE 50 MG/ML AMP IV PRN (18:30)
[2022-01-07] MEDS ORDERED: MIDAZOLAM HCL 2MG/2ML 2ml VIAL (1mg/ml) IV PRN (18:30)
[2022-01-07] MEDS ORDERED: ONDANSETRON HCL 4 MG/2 ML VIAL IV PRN (18:30)
[2022-01-07] MEDS ORDERED: MORPHINE SULFATE 4 MG/ML SYR/VIAL IV PRN (18:30)
[2022-01-07] MEDS ORDERED: HYDROmorphone HCL 2 MG/ML VL/or syr IV PRN (18:30)
[2022-01-07] MEDS ORDERED: NOREPINEPHRINE 8 MG/250ML KIT 250 ML IV PRN (18:45)
[2022-01-07] MEDS ORDERED: DEXTROSE (50%) 50ML SYRG IV PRN (18:45)
[2022-01-07] MEDS: PROPOFOL 100 ML IV SCH (19:00)
[2022-01-07] MEDS: fentaNYL Drip 2500mCg/250mlNS 250 ML IV SCH ×2 (19:00→21:30)
[2022-01-07] MEDS: MIDAZOLAM DRIP 50 mg/50mL 50 ML IV SCH ×3 (19:00→21:00)
[2022-01-07] MEDS ORDERED: hydrALAZINE HCL 20 MG/ML VL IV PRN (19:15)
[2022-01-07] MEDS ORDERED: SODIUM CHLORIDE 0.9% 1,000 ML IV ONE (19:15)
[2022-01-07] MEDS: DexAMETHasone SOD PHOS 10MG/1ML VIAL INJ IV SCH (22:00)
[2022-01-07] MEDS: ENOXAPARIN SOD 40 MG/0.4 ML SYRINGE SC SCH (22:00)
[2022-01-07] MEDS: BUDESONIDE (INHALATION) 180 MCG IH IN SCH (22:00)
[2022-01-07] MEDS ORDERED: ENOXAPARIN SOD 60 MG/0.6 ML SYRINGE SC SCH (22:00)
[2022-01-07] MEDS ORDERED: ceFAZolin 2GM/100ML 100 ML IV SCH (22:00)
[2022-01-07 22:32] LABS: Cholesterol 188 mg/dL (< 200)
[2022-01-07 22:34] LABS: HDL Cholesterol 40 mg/dL (40-59); LDL Cholesterol 137 mg/dL (< 100); Magnesium 1.8 mg/dL (1.6-2.6); Triglycerides 165 mg/dL (< 150)
[2022-01-07 22:39] LABS: INR 1.03 (0.9-1.15)
[2022-01-07 22:43] LABS: CRP High Sensitivity 3.95 mg/dL (< 0.3)
[2022-01-07 22:52] LABS: Thyroid Stimulating Hormone 0.42 uIU/mL (0.358-3.74)
[2022-01-08] VITALS (104 sets, daily range): BP systolic 80–136; BP diastolic 37–64
[2022-01-08] MEDS: MIDAZOLAM DRIP 50 mg/50mL 50 ML IV SCH ×3 (02:00→17:19)
[2022-01-08] MEDS: IPRATROPIUM BROM 0.5 MG/2.5ML INH SOL NEB PRN (04:12)
[2022-01-08] MEDS: ALBUTEROL SULF 2.5 MG/0.5ML(0.5%) NEB SOLN NEB PRN (04:12)
[2022-01-08 04:44] LABS: Basophils # (auto) 0 10 ^3/uL (0-0.2); Basophils % (auto) 0.2 % (0.0-2.0); Eosinophils # (auto) 0 10 ^3/uL (0-0.8); Hematocrit 35.7 % (36.0-46.0); Hemoglobin 12.1 g/dL (12.2-16.2); Lymphocytes # (auto) 0.6 10 ^3/uL (0.4-5.4); Lymphocytes % (auto) 6.7 % (10.0-50.0); Mean Corpuscular Hemoglobin 29.9 pg (28.0-32.0); Mean Corpuscular Hgb Conc. 33.8 g/dL (32.0-36.0); Mean Corpuscular Volume 88.5 fL (80.0-100.0); Monocytes # (auto) 0.3 10 ^3/uL (0-1.3); Monocytes % (auto) 2.9 % (0.0-12.0); Neutrophils # (auto) 7.7 10 ^3/uL (1.6-8.6); Neutrophils % (auto) 90.2 % (37.0-80.0); Red Blood Cells 4.04 10^6/uL (4.0-5.20); Red Cell Distribution Width 13.5 % (11.8-14.3); White Blood Cell 8.6 10^3/uL (4.4-10.8)
[2022-01-08 05:01] LABS: Albumin 3.7 g/dL (3.4-5.0); Calcium 8.6 mg/dL (8.5-10.1); Potassium 4.2 mmol/L (3.5-5.1)
[2022-01-08 05:04] LABS: BUN/Creatinine Ratio 12.5
[2022-01-08 05:06] LABS: Bilirubin, Total 0.6 mg/dL (0.2-1.0)
[2022-01-08] MEDS: DexAMETHasone SOD PHOS 10MG/1ML VIAL INJ IV SCH ×3 (06:00→21:56)
[2022-01-08] MEDS: InsuLIN REG 1unit/0.01ml Soln (100units/ml) SC SCH ×4 (06:00→18:09)
[2022-01-08] MEDS: ACCU-CHEK COMFORT CURVE STRIP VI SCH ×4 (06:00→18:07)
[2022-01-08] MEDS: PIPERACILLIN-TAZO 4.5GM 100 ML IV SCH ×2 (06:00)
[2022-01-08] MEDS: DexAMETHasone SOD PHOS 4 MG/1ML SDV INJ IV SCH ×2 (06:00)
[2022-01-08] MEDS ORDERED: PIPERACILLIN-TAZO 4.5GM 100 ML IV ONE (06:57)
[2022-01-08] MEDS: ENOXAPARIN SOD 40 MG/0.4 ML SYRINGE SC SCH ×2 (08:56→21:56)
[2022-01-08] MEDS: BUDESONIDE (INHALATION) 180 MCG IH IN SCH (10:00)
[2022-01-08] MEDS: AZITHROMYCIN 500MG/ 250ML 250 ML IV SCH (10:34)
[2022-01-08] MEDS ORDERED: AMOXICILLIN TRIHYDRATE 250 MG CAP PO ONE (11:45)
[2022-01-08] MEDS: fentaNYL Drip 2500mCg/250mlNS 250 ML IV SCH (12:19)
[2022-01-08] MEDS ORDERED: AMOXICILLIN TRIHYDRATE 250 MG CAP PO SCH (14:00)
[2022-01-08] MEDS: PENICILLIN G POTASSIUM 2,500,000 UNITS in D5W 5% 50 ML IV SCH ×5 (14:25→23:45)
[2022-01-08] MEDS: DOPamine 1600MCG/ML D5W 250 ML IV SCH (17:30)
[2022-01-08] MEDS: PROPOFOL 100 ML IV SCH (19:00)
[2022-01-09] VITALS (65 sets, daily range): BP systolic 98–172; BP diastolic 46–89
[2022-01-09] MEDS: PENICILLIN G POTASSIUM 2,500,000 UNITS in D5W 5% 50 ML IV SCH ×5 (03:45→19:45)
[2022-01-09 04:47] LABS: BUN/Creatinine Ratio 23.1; Calcium 8.4 mg/dL (8.5-10.1); Potassium 4.5 mmol/L (3.5-5.1)
[2022-01-09] MEDS: InsuLIN REG 1unit/0.01ml Soln (100units/ml) SC SCH ×4 (06:00→18:00)
[2022-01-09] MEDS: ACCU-CHEK COMFORT CURVE STRIP VI SCH ×4 (06:00→18:04)
[2022-01-09] MEDS: DexAMETHasone SOD PHOS 10MG/1ML VIAL INJ IV SCH ×2 (06:00→15:31)
[2022-01-09 07:32] LABS: Basophils # (auto) 0 10 ^3/uL (0-0.2); Basophils % (auto) 0.1 % (0.0-2.0); Eosinophils # (auto) 0 10 ^3/uL (0-0.8); Hematocrit 34.7 % (36.0-46.0); Hemoglobin 11.4 g/dL (12.2-16.2); Lymphocytes # (auto) 0.8 10 ^3/uL (0.4-5.4); Lymphocytes % (auto) 6.7 % (10.0-50.0); Mean Corpuscular Hemoglobin 29.4 pg (28.0-32.0); Mean Corpuscular Hgb Conc. 32.9 g/dL (32.0-36.0); Mean Corpuscular Volume 89.4 fL (80.0-100.0); Monocytes # (auto) 0.5 10 ^3/uL (0-1.3); Monocytes % (auto) 3.8 % (0.0-12.0); Neutrophils # (auto) 10.6 10 ^3/uL (1.6-8.6); Neutrophils % (auto) 89.4 % (37.0-80.0); Red Blood Cells 3.88 10^6/uL (4.0-5.20); Red Cell Distribution Width 13.3 % (11.8-14.3); White Blood Cell 11.9 10^3/uL (4.4-10.8)
[2022-01-09] MEDS: AZITHROMYCIN 500MG/ 250ML 250 ML IV SCH (09:50)
[2022-01-09] MEDS: ENOXAPARIN SOD 40 MG/0.4 ML SYRINGE SC SCH (09:50)
[2022-01-09] MEDS: DOPamine 1600MCG/ML D5W 250 ML IV SCH (11:36)
[2022-01-09] MEDS: MIDAZOLAM DRIP 50 mg/50mL 50 ML IV SCH (12:11)
[2022-01-09] MEDS: ALBUTEROL SULF 2.5 MG/0.5ML(0.5%) NEB SOLN NEB PRN (18:38)
[2022-01-09] MEDS: IPRATROPIUM BROM 0.5 MG/2.5ML INH SOL NEB PRN (18:38)
[2022-01-09] MEDS: PROPOFOL 100 ML IV SCH (19:00)
[2022-01-09] MEDS: fentaNYL Drip 2500mCg/250mlNS 250 ML IV SCH (19:00)
== END 2022-01-09 20:50 | DRG 113 ==
LOC: ER 12:09 → TELE 18:11 → ICU WEST 19:28
PROVIDERS: ADMIT Registered Nurse; ATTEND Internal Medicine Pulmonary Disease
PROC: 0BH17EZ Insertion of Endotracheal Airway into Trachea, Via Natural or Artificial Opening (ICD-10-PCS; 2022-01-07)
PROC: 5A1945Z Respiratory Ventilation, 24-96 Consecutive Hours (ICD-10-PCS; principal; 2022-01-07 17:15)
PROC: 30233K1 Transfusion of Nonautologous Frozen Plasma into Peripheral Vein, Percutaneous Approach (ICD-10-PCS; 2022-01-08)
DX: J05.11 Acute epiglottitis with obstruction (principal); J96.01 Acute respiratory failure with hypoxia; U07.1 COVID-19; B95.0 Streptococcus, group A, as the cause of diseases classified elsewhere; E11.9 Type 2 diabetes mellitus without complications; E66.9 Obesity, unspecified; E78.5 Hyperlipidemia, unspecified; Z68.29 Body mass index [BMI] 29.0-29.9, adult; I10 Essential (primary) hypertension; Z83.3 Family history of diabetes mellitus; Z90.710 Acquired absence of both cervix and uterus; Z79.84 Long term (current) use of oral hypoglycemic drugs
CPT/HCPCS: 36415; 36430; 36600; 70490; 71045; 71046; 80048; 80053; 80061; 82306; 82728; 82805; 82962; 83036; 83540; 83550; 83605; 83615; 83735; 83880; 84443; 85025; 85045; 85379; 85610; 86141; 86850; 86900; 86901; 87040; 87070; 87081; 87205; 87426; 87804; 87880; 94002; 94003; 94640; 96365; 96368; 96375; G0378; J0690; J0696; J1100; J2250; J2543; J2704; J7060

== ENCOUNTER 2023-08-22 05:27 | Emergency (ER) | payer MEDICAID ==
[~2023-08-22] VITALS: Ht 157.5 cm; Wt 75.3 kg
[2023-08-22 05:59] LABS: Urine Bacteria None Seen /hpf (None Seen)
[2023-08-22 06:25] LABS: Urine Blood 2+ /uL (Negative); Urine Clarity Clear (Clear); Urine Color Light-Yellow (Yellow); Urine Mucus FEW (None Seen); Urine Protein, UAD TRACE (Negative); Urine Specific Gravity 1.028 (1.001-1.035); Urine Urobilinogen Normal (Negative); Urine WBC 4 /hpf (0 - 5); Urine pH 5.5 (5.0-9.0)
[2023-08-22 07:11] LABS: Basophils # (auto) 0 10 ^3/uL (0-0.2); Basophils % (auto) 0.4 % (0.0-2.0); Eosinophils # (auto) 0.1 10 ^3/uL (0-0.8); Eosinophils % (auto) 1.3 % (0.0-7.0); Hematocrit 39.7 % (36.0-46.0); Hemoglobin 13.6 g/dL (12.2-16.2); Lymphocytes # (auto) 2.2 10 ^3/uL (0.4-5.4); Lymphocytes % (auto) 29.8 % (10.0-50.0); Mean Corpuscular Hemoglobin 30.3 pg (28.0-32.0); Mean Corpuscular Hgb Conc. 34.2 g/dL (32.0-36.0); Mean Corpuscular Volume 88.5 fL (80.0-100.0); Monocytes # (auto) 0.6 10 ^3/uL (0-1.3); Monocytes % (auto) 8.7 % (0.0-12.0); Neutrophils # (auto) 4.3 10 ^3/uL (1.6-8.6); Neutrophils % (auto) 59.8 % (37.0-80.0); Nucleated Red Blood Cells % 0.1 %; Red Blood Cells 4.48 10^6/uL (4.0-5.20); Red Cell Distribution Width 12.8 % (11.8-14.3); White Blood Cell 7.2 10^3/uL (4.4-10.8)
[2023-08-22] MEDS: ONDANSETRON ODT 4 MG TAB PO ONE (07:22)
[2023-08-22] MEDS: KETOROLAC TROMETH 60MG/2ML VIAL IM ONE (07:22)
[2023-08-22 07:27] LABS: Alanine Aminotransferase 28 U/L (7-40); Albumin 4.4 g/dL (3.2-4.8); Alkaline Phosphatase 76 U/L (46-116); Anion Gap 6 (5-15); Aspartate Aminotransferase 21 U/L (13-40); BUN/Creatinine Ratio 13.6 (10.0-20.0); Bilirubin, Total 0.6 mg/dL (0.2-1.0); Blood Urea Nitrogen 8 mg/dL (9-23); Calcium 9.7 mg/dL (8.7-10.4); Carbon Dioxide 25 mmol/L (20-30); Chloride 107 mmol/L (98-107); Glucose 163 mg/dL (74-106); Lipase 41 U/L (12-53); Potassium 4.2 mmol/L (3.5-5.1); Sodium 138 mmol/L (136-145); Total Protein 6.8 g/dL (5.7-8.2)
[2023-08-22 07:31] VITALS: BP 115/50; PULSE 63; RESP 16; TEMP 98.1; O2SAT 98
[2023-08-22] MEDS ORDERED: IBUP-1456 PO (08:06)
[2023-08-22] MEDS ORDERED: TAMS-35 PO (08:06)
[2023-08-22] MEDS ORDERED: ZOFR4T PO (08:06)
== END 2023-08-22 08:13 | disposition home or self-care (01) ==
LOC: ER 05:30
DX: N20.0 Calculus of kidney (principal); N83.201 Unspecified ovarian cyst, right side; N83.202 Unspecified ovarian cyst, left side; I10 Essential (primary) hypertension; E11.9 Type 2 diabetes mellitus without complications; E78.5 Hyperlipidemia, unspecified; K80.20 Calculus of gallbladder without cholecystitis without obstruction; Z98.890 Other specified postprocedural states; Z79.899 Other long term (current) drug therapy
CPT/HCPCS: 36415; 74176; 80053; 81001; 83690; 85025; 96372; 99285; J1885; Q0162

== ENCOUNTER 2023-11-19 14:13 | Emergency (ER) | payer MEDICAID ==
[~2023-11-19] VITALS: Ht 157.5 cm; Wt 74.3 kg
[~2023-11-19 14:13] MED LIST changes: +IBUP-1456 PO; +TAMS-35 PO; +ZOFR4T PO
[2023-11-19 18:11] LABS: Alanine Aminotransferase 76 U/L (7-40); Albumin 5.2 g/dL (3.2-4.8); Alkaline Phosphatase 98 U/L (46-116); Anion Gap 11 (5-15); Aspartate Aminotransferase 66 U/L (13-40); Blood Urea Nitrogen 7 mg/dL (9-23); CRP High Sensitivity 0.81 mg/dL (<1.0); Calcium 10.3 mg/dL (8.7-10.4); Carbon Dioxide 22 mmol/L (20-30); Chloride 104 mmol/L (98-107); Glucose 160 mg/dL (74-106); Potassium 3.6 mmol/L (3.5-5.1); Sodium 137 mmol/L (136-145)
[2023-11-19 18:12] LABS: Bilirubin, Total 0.9 mg/dL (0.2-1.0)
[2023-11-19 18:31] LABS: Basophils # (auto) 0 10 ^3/uL (0-0.2); Basophils % (auto) 0.4 % (0.0-2.0); Eosinophils # (auto) 0.1 10 ^3/uL (0-0.8); Eosinophils % (auto) 0.8 % (0.0-7.0); Hematocrit 42.6 % (36.0-46.0); Hemoglobin 14.7 g/dL (12.2-16.2); Lymphocytes # (auto) 2.1 10 ^3/uL (0.4-5.4); Lymphocytes % (auto) 31.5 % (10.0-50.0); Mean Corpuscular Hemoglobin 30.8 pg (28.0-32.0); Mean Corpuscular Hgb Conc. 34.6 g/dL (32.0-36.0); Mean Corpuscular Volume 89.1 fL (80.0-100.0); Monocytes # (auto) 0.6 10 ^3/uL (0-1.3); Monocytes % (auto) 8.2 % (0.0-12.0); Neutrophils % (auto) 59.1 % (37.0-80.0); Nucleated Red Blood Cells % 0.4 %; Platelet Count (auto) 208 10^3/uL (140-450); Red Blood Cells 4.78 10^6/uL (4.0-5.20); Red Cell Distribution Width 13.3 % (11.8-14.3); White Blood Cell 6.8 10^3/uL (4.4-10.8)
[2023-11-19 19:37] LABS: Erythrocyte Sedimentation Rate 6 mm/hr (0-20)
[2023-11-19 19:45] LABS: Urine Bacteria None Seen /hpf (None Seen)
[2023-11-19 20:05] LABS: Urine Blood TRACE /uL (Negative); Urine Budding Yeast OCCASIONAL /hpf (None Seen); Urine Clarity Clear (Clear); Urine Color Yellow (Yellow); Urine Hyaline Cast FEW /lpf (0 - 2); Urine Mucus FEW (None Seen); Urine Protein, UAD Negative (Negative); Urine Specific Gravity 1.028 (1.001-1.035); Urine Urobilinogen Normal (Negative); Urine WBC 2 /hpf (0 - 5); Urine pH 5.5 (5.0-9.0)
[2023-11-19] MEDS: MECLIZINE HCL 25 MG TAB PO ONE (22:29)
[2023-11-19] MEDS: FLUCONAZOLE 100 MG TAB PO ONE (22:29)
[2023-11-19] MEDS: SODIUM CHLORIDE 0.9% 1,000 ML IV ONE (22:30)
[2023-11-19] MEDS: ONDANSETRON ODT 4 MG TAB PO ONE (22:30)
[2023-11-19] MEDS ORDERED: MECL1TAB42 PO (22:40)
[2023-11-19 22:43] VITALS: BP 124/76; PULSE 87; RESP 16; TEMP 98.7; O2SAT 96
== END 2023-11-19 23:25 | disposition home or self-care (01) ==
LOC: ER 14:13
DX: R42 Dizziness and giddiness (principal); R22.43 Localized swelling, mass and lump, lower limb, bilateral; R10.2 Pelvic and perineal pain; E11.9 Type 2 diabetes mellitus without complications; E78.5 Hyperlipidemia, unspecified; I10 Essential (primary) hypertension; Z90.49 Acquired absence of other specified parts of digestive tract; Z90.710 Acquired absence of both cervix and uterus; Z98.51 Tubal ligation status; Z79.84 Long term (current) use of oral hypoglycemic drugs; Z79.899 Other long term (current) drug therapy
CPT/HCPCS: 36415; 80053; 81001; 82962; 83605; 83880; 84484; 84702; 85025; 85379; 85652; 86141; 93970; 93971; 96360; 99284; J7030; Q0162

== ENCOUNTER 2024-05-10 11:30 | Emergency (ER) | payer MEDICAID ==
[~2024-05-10] VITALS: Ht 157.5 cm; Wt 76.0 kg
[~2024-05-10 11:30] MED LIST changes: +MECL1TAB42 PO
[2024-05-10 11:40] VITALS: BP 136/78; PULSE 100; TEMP 96.8
[2024-05-10 12:15] VITALS: RESP 16; O2SAT 95
[2024-05-10] MEDS ORDERED: PHEN1LIQ50 PO (13:03)
[2024-05-10] MEDS ORDERED: IBU600T PO (13:03)
[2024-05-10] MEDS ORDERED: AZIT500T PO (13:03)
--- NOTE | 2024-05-10 13:04 | ED.PDOC ---
Eye-HPI HPI Comments 48 year old female presented to the [facility] complaining of a sore throat dry cough lack of appetite and generalized weakness Patient is diabetic taking metformin Chief Complaint: Flu like Time Seen by MD: 11:33 Primary Care Provider: ROCIO Allergies: Coded Allergies: NO KNOWN ALLERGIES (Unverified , 05/24/11) Home Meds Active Scripts Meclizine HCl (Meclizine 25) 25 Mg Tab, 25 MG PO TIDPRN PRN for 3 Days, #9 TAB Prov:LUZMA JESSICA DO 11/19/23 Tamsulosin Hcl (Flomax) 0.4 Mg Cap, 1 CAP PO DAILY, #20 CAP Prov:SHARONA MCGREGOR 08/22/23 Ondansetron Odt 4MG Tab (ZOFRAN PO) 4 Mg Tb, 4 MG PO BID, #14 TAB ODT TAB-DISSOLVE IN MOUTH, THEN SWALLOW Prov:SHARONA MCGREGOR 08/22/23 Ibuprofen (Ibuprofen) 800 Mg Tab, 1 TAB PO TID, #30 TAB Prov:SHARONA MCGREGOR 08/22/23 Reported Medications Metformin Hydrochloride (Metformin Hcl) 500 Mg Tab, 500 MG PO IBID for 30 Days, MG 01/19/21 Information Source: Patient Mode of Arrival: Ambulatory Timing: Days Duration: Since onset, Days Quality: Pain Lids: Normal Conjunctiva: Normal Cornea: Normal Pupils: Normal EOM: Normal Fundus: Normal Slit lamp exam: Normal Anterior chamber: Normal Mouth: Normal ENT Ear Exam: Normal, Normal, Normal Nose: Normal Oropharynx: Red Throat Exposed to: None Eye Context Recent: URI Symptoms, Recurrent sore throat History of: None Last Tetanus: UTD Modifying factors: Nothing Associated signs and symptoms: Fever, Sore Throat Past Medical History PAST MEDICAL HISTORY: DM, Gallstones, High Lipids, HTN, UTI'S Surgical History: Appendectomy, BTL, Hysterectomy 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 ACCOUNTS CLERK History Family History Family History: Reviewed,noncontributory to illness, Family hx of DM Social History Smoker: Non-Smoker Alcohol: Denies ETOH Use Drugs: Denies Drug Use Lives In: Home Constitutional: reports: fever, malaise, weakness; denies: chills, diaphoresis, fatigue, sweats, others EENTM: reports: throat pain, throat swelling; denies: blurred vision, double vision, ear bleeding, ear discharge, ear drainage, ear pain, ear ringing, eye pain, eye redness, hearing loss, mouth pain, mouth swelling, nasal discharge, nose bleeding, nose congestion, nose pain, photophobia, tearing, voice changes, others Respiratory: reports: cough, shortness of breath; denies: hemoptysis, orthopnea, SOB at rest, SOB with excertion, stridor, wheezing, others Cardiovascular: denies: chest pain, dizzy spells, diaphoresis, Dyspnea on exertion, edema, irregular heart beat, left arm pain, lightheadedness, palpitations, PND, syncope, others Gastrointestinal: denies: abdomen distended, abdominal pain, blood streaked bowels, constipated, diarrhea, dysphagia, difficulty swallowing, hematemesis, melena, nausea, poor appetite, poor fluid intake, rectal bleeding, rectal pain, vomiting, others Genitourinary: denies: abnormal vagina bleeding, burning, dyspareunia, dysuria, flank pain, frequency, hematuria, incontinence, pain, , vagina discharge, urgency, others Neurological: denies: dizziness, fainting, headache, left sided numbness, left sided weakness, numbness, paresthesia, pre-existing deficit, right sided numbness, right sided weakness, seizure, speech problems, tingling, tremors, weakness, others Musculoskeletal: denies: back pain, gout, joint pain, joint swelling, muscle pain, muscle stiffness, neck pain, others Integumetry: denies: bruises, change in color, change in hair/nails, dryness, laceration, lesions, lumps, rash, wounds, others Allergic/Immunocompromised: denies: Difficulty Healing, Frequent Infections, Hives, Itching, others Hematologic/Lymphatic: denies: anemia, blood clots, easy bleeding, easy bruising, swollen glands, others Endocrine: denies: excessive hunger, excessive sweating, excessive thirst, excessive urination, flushing, intolerance to cold, intolerance to heat, unexplained weight gain, unexplained weight loss, others Psychiatric: denies: anxiety, bipolar disorder, depression, hopeless, panic disorder, schizophrenia, sleepless, suicidal, others All Other Systems: Reviewed and Negative Physical Exam General Appearance: Mild Distress, Obese HEENT: PERRL/EOMI, Pharyngeal Erythema Neck: Full Range of Motion, Non-Tender, Normal, Normal Inspection Respiratory: Crackles, Decreased Breath Sounds, Expiration, Inspiration, No Respiratory Distress, Rhonchi Cardiovascular: No Edema, No JVD, No Murmur, No Gallop, Normal Peripheral Pulses, Regular Rate/Rhythm Breast Exam: Deferred Gastrointestinal: No Organomegaly, Non Tender, No Pulsatile Mass, Normal Bowel Sounds, Soft Genitalia: Deferred Pelvic: Deferred Rectal: Deferred Extremities: No calf tenderness, Normal capillary refill, Normal inspection, Normal range of motion, Non-tender, No pedal edema Neurologic: Alert, bow rehairer II-XII nml as Tested, No Motor Deficits, Normal Affect, Normal Mood, No Sensory Deficits Cerebellar Function: Normal Reflexes: Normal Skin: Dry, Normal Color, Warm Peripheral Pulses: 1+ carotid (R), 1+ carotid (L) Lymphatic: No Adenopathy Was a procedure done? Was a procedure done?: No EENT DIFF Eye: Other Ear: Pharyngitis, Sinusitis Nose: N/A Mouth: N/A Sore Throat: Peritonsillar Cellulitis, Pharyngitis, Viral Pharyngitis, URI X-Ray, Labs, Meds, VS Vital Signs Date Time Temp Pulse Resp B/P (MAP) Pulse Ox O2 Delivery O2 Flow Rate FiO2 05/10/24 12:15 16 95 Room Air* 0 21 05/10/24 11:40 97.8 100 16 136/78 (97) 95 97.8 X-Ray, Labs, Meds, VS Comment Course in the fast track eventful patient complaining of a sore throat shortness of breath and fatigue Patient is a diabetic Physical examination shows very swollen pharynx and tonsils The lungs show some inspiratory and expiratory rhonchi Patient will be discharged home to follow up with her PCP Time of 1ST Reevaluation: 13:01 Reevaluation 1ST: Unchanged Consultation: PCP Patient Education/Counseling: Diagnosis, Treatment, Prognosis, Need For Follow Up Family Education/Counseling: Diagnosis, Treatment, Prognosis, Need For Follow Up, No Family Present Departure 1 Departure Time of Disposition: 12:59 Impression: Primary Impression: Pharyngitis due to influenza Additional Impressions: Generalized weakness Bronchitis due to parainfluenza virus Disposition: 01 HOME / SELF CARE / HOMELESS Condition: Fair Additional Instructions: Follow up with your PCP e-Prescriptions Ibuprofen Micronized (MOTRIN TABLET) 600 Mg Tb 600 MG PO TID PRN for 10 Days, #30 TAB *Black box warning-NSAIDS can increase risk of OR & hypertension, GI irritation, ulceration, bleed, perferation. Do not use post cardiac surgery. Use short duration/lowest effective dose. Prov: YESSENIA REGAN MD 05/10/24 [id number]-[id number] W/ APAP (Robitussin Severe Mul... [id number] mg/10Ml) 1 Liq Liq 2 LIQ PO TID for 10 Days, #300 LIQ Prov: YSESENIA REGAN MD 05/10/24 Azithromycin (Zithromax) 500 Mg Tab 1 TAB PO DAILY for 5 Days, #5 TAB Prov: YESSENIA REGAN MD 05/10/24 Discharged With: Self Critical Care Note Critical Care Time?: No Stability Stability form required: No Heart Score Heart Score: Heart Score Response (Comments) Value History N/A 0 EKG N/A 0 Age 45-64 1 Risk Factors 1 or 2 risk factors 1 Troponin N/A 0 Total 2 YESSENIA REGAN MD May 10, 2024 13:04
== END 2024-05-10 13:22 | disposition home or self-care (01) ==
LOC: ER 11:30
DX: J20.4 Acute bronchitis due to parainfluenza virus (principal); J11.1 Influenza due to unidentified influenza virus with other respiratory manifestations; R53.1 Weakness; R63.0 Anorexia; E11.9 Type 2 diabetes mellitus without complications; I10 Essential (primary) hypertension; E78.5 Hyperlipidemia, unspecified; Z90.49 Acquired absence of other specified parts of digestive tract; Z90.710 Acquired absence of both cervix and uterus; Z98.51 Tubal ligation status; Z79.1 Long term (current) use of non-steroidal anti-inflammatories (NSAID); Z79.899 Other long term (current) drug therapy

== ENCOUNTER 2024-10-06 14:25 | Emergency (ER) | payer MEDICAID ==
[~2024-10-06] VITALS: Ht 157.5 cm; Wt 62.0 kg
[~2024-10-06 14:25] MED LIST changes: +AZIT500T PO; +IBU600T PO; +PHEN1LIQ50 PO
[2024-10-06] MEDS ORDERED: BENZ200C64 PO (15:07)
[2024-10-06] MEDS ORDERED: PROM1SOL4 PO (15:07)
[2024-10-06] MEDS ORDERED: AUG875T PO (15:07)
[2024-10-06] MEDS ORDERED: PSEU120T18 PO (15:07)
--- NOTE | 2024-10-06 15:07 | ED.PDOC ---
SOB-HPI HPI Comments 49-year-old female who presents to the ED with a chief complaint of flu-like symptoms. patient states that she has been having back pain lightheadedness congestion and weakness with a past three days. patient said these symptoms have caused her difficulty sleeping. Patient states she has been taking Mucinex with states that she is still feeling congested. Patient otherwise denies any sick contacts. patient in the ED otherwise has not noticed stable vitals include temperature 98.7 an otherwise stable vitals in the ED. Started Also with Therapies tried COVID-19 exposure: None that they know of COVID testing People at home Denies fevers chills night sweats unintentional weight loss Denies persistent chest pain, shortness of breath, leg swelling Denies history of asthma nor any breathing conditions Denies history of pneumonia Denies recent international travel Chief Complaint: Flu like Time Seen by MD: 14:53 Primary Care Provider: ROCIO Steiner notes: Medications, Allergies Information Source: Patient Mode of Arrival: Ambulatory Past Medical History PAST MEDICAL HISTORY: DM, Gallstones, High Lipids, HTN, UTI'S Surgical History: Appendectomy, BTL, Hysterectomy 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 Family History Family History: Reviewed,noncontributory to illness, Family hx of DM Social History Smoker: Non-Smoker Alcohol: Denies ETOH Use Drugs: Denies Drug Use Lives In: Home All Other Systems: Reviewed and Negative (See HPI) Physical Exam General Appearance: No Apparent Distress, Normal HEENT: Normal ENT Inspection, Pharynx Normal, TMs Normal Neck: Full Range of Motion, Non-Tender, Normal, Normal Inspection Respiratory: Other (Moist mucous membranes) Cardiovascular: No Edema, No JVD, No Murmur, No Gallop, Normal Peripheral Pulses, Regular Rate/Rhythm Breast Exam: Deferred Gastrointestinal: No Organomegaly, Non Tender, No Pulsatile Mass, Normal Bowel Sounds, Soft Genitalia: Deferred Pelvic: Deferred Rectal: Deferred Extremities: No calf tenderness, Normal capillary refill, Normal inspection, Normal range of motion, Non-tender, No pedal edema Musculoskeletal : Apperance: Normal Neurologic: Alert, pipe straightener II-XII nml as Tested, No Motor Deficits, Normal Affect, Normal Mood, No Sensory Deficits Cerebellar Function: Normal Reflexes: Normal Skin: Dry, Normal Color, Warm Lymphatic: No Adenopathy Was a procedure done? Was a procedure done?: No Differential Dx Differential Diagnosis: Pharyngitis, URI Comments Viral syndrome COVID influenza a and B X-Ray, Labs, Meds, VS Vital Signs Date Time Temp Pulse Resp B/P (MAP) Pulse Ox O2 Delivery O2 Flow Rate FiO2 10/06/24 14:27 98.7 98 16 134/70 99 98.7 X-Ray, Labs, Meds, VS Comment 49-year-old female who presents to the ED with a chief complaint of flu-like symptoms. Patient arrives alert and oriented, ABC's intact, afebrile, vital signs stable, saturating well in room air Labs in the ED showed (pertinent+ and then pertinent-) Patient was given:_. Tolerated medications with no adverse reaction. Additional MDM Review of External, Non-ED records: External records reviewed. Discussion with independent historian (EMS, family) history obtained from the patient/parents (if applicable) at bedside Chronic conditions affecting care: None Social determinants of health affecting care: None Consideration of admission (observation or admission): I considered escalation of care to admission for this patient, however given the reassuring workup, the patient is safe for outpatient management. Discussion with the Radiology: No Tests considered but not performed: Prescription medication considered but not given: 12 lead EKG interpretation: Patient Education/Counseling: Diagnosis, Treatment Family Education/Counseling: No Family Present SEPSIS Sepsis Screen Date sepsis recognized/suspect: Oct 06, 2024 Time Sepsis recognized/suspect: 9 Recent Procedure: No On Antibiotic Therapy: No Respiratory Rate >20: No Heart Rate >90: Yes Temp<36 C (96.8 F) or >38.3 C: No SBP <90 or MAP <65 mmHG: No New Acute Mental Status Change: No Is the patient on CPAP, BIPAP,: No Vital Signs Date Time Temp Pulse Resp B/P (MAP) Pulse Ox O2 Delivery O2 Flow Rate FiO2 10/06/24 14:27 98.7 98 16 134/70 99 98.7 Departure 1 Departure Time of Disposition: 15:04 Impression: Primary Impression: Viral syndrome Disposition: 01 HOME / SELF CARE / HOMELESS Condition: Stable e-Prescriptions Pseudoephedrine-Guaifenesin (Mucinex D) 1 Tab Tab 1 TAB PO BID for 10 Days, #20 TAB 0 Refills Prov: INDIA KOWALSKI UNDERGROUND REPAIRER 10/06/24 Promethazine-Dm (Promethazine Dm 6.25-15 mg/5Ml) 1 Juli Juli 5 ML PO TID for 10 Days, #150 ML 0 Refills Prov: INDIA KOAWLSKI NP 10/06/24 Benzonatate (Benzonatate) 200 Mg Cap 1 CAP PO TID for 10 Days, #30 CAP 0 Refills Prov: INDIA KOWALSKI NP 10/06/24 Amoxicillin & Pot Clavulanate (AUGMENTIN TABLET) 875 Mg Tb 875 MG PO BID for 7 Days, #14 TAB 0 Refills Prov: INDIA KOWALSKI NP 10/06/24 Critical Care Note Critical Care Time?: No Stability Stability form required: No Heart Score Heart Score: Heart Score Response (Comments) Value History N/A 0 EKG N/A 0 Age N/A 0 Risk Factors N/A 0 Troponin N/A 0 Total 0 I personally scribed for INDIA KOWALSKI NP ([email or web address]) on 10/06/24 at 16:04. Electronically submitted by Nettie Villafana ([email or web address]). INDIA KOWALSKI NP Oct 06, 2024 15:07
[2024-10-06 16:32] VITALS: BP 152/78; PULSE 87; RESP 18; TEMP 98.7; O2SAT 96
== END 2024-10-06 16:34 | disposition home or self-care (01) ==
LOC: ER 14:25
DX: B34.9 Viral infection, unspecified (principal); E11.9 Type 2 diabetes mellitus without complications; I10 Essential (primary) hypertension; Z90.710 Acquired absence of both cervix and uterus; Z90.49 Acquired absence of other specified parts of digestive tract